=== PATIENT | female | born 1985 | race Two or more races ===

== ENCOUNTER 2025-03-23 12:50 | Emergency (ER) | payer OTHER, SELFPAY ==
[2025-03-23 13:06] VITALS: BP 136/82; PULSE 113; RESP 18; TEMP 37.2; BMI 36.0
--- NOTE | 2025-03-23 13:07 | XR_ITS ---
Examination: Complete OB ultrasound, less than 14 weeks, transabdominal Date and time of exam: March 23, 2025 1336 hours INDICATIONS: Onset heavy vaginal bleeding today Technique: Obstetrical ultrasound images less than 14 weeks performed via transabdominal imaging Findings: Uterus 15.0 cm endometrial stripe 2.9 cm heterogeneous and thickened, also blood clot in the cervix 8.7 x 6.9 x 6.3 cm Intrauterine gestation Right ovary 2.7 cm Left ovary 3.5 cm both arterial flow IMPRESSION: Positive for retained products of conception Consider short term follow-up transvaginal pelvic sonography
--- NOTE | 2025-03-23 13:51 | PD.EDVAGBL ---
ED OB Contraction Preg RMI/HPI General Chief complaint: Vaginal Bleeding Stated complaint: 13 WEEKS STARTED HAVING VAGBLEEDING TODAY Time Seen by Provider: 03/23/25 12:56 Arrival date/time: 03/23/25 12:50 This is a 39-year-old female that comes into the emergency room with complaints of vaginal bleeding. Patient states she was at [employer] and she felt a gush of blood. Patient states that prior to this she was having some spotting. Patient does not have an appointment with an HEAD RIGGER until April 07. Patient has not seen an HEAD RIGGER for this . Patient is a 3 para 2. Patient denies any past medical history. Patient denies abdominal pain, nausea, vomiting, and diarrhea. Related Data Previous Rx's ?Medication ?Instructions ?Recorded ipratropium bromide 21 mcg (0.03 2 spray intranasal BID #30 mL 07/29/18 %) nasal spray loratadine 10 mg tablet (Allergy 10 mg PO QDAY allergy symptoms #30 07/29/18 Relief (loratadine)) tabs docusate sodium 100 mg capsule 100 mg PO QDAY 30 days #30 caps 03/27/25 (Stool Softener) ferrous sulfate 325 mg (65 mg 325 mg PO QDAY 60 days #60 tabs 03/27/25 iron) tablet ibuprofen 800 mg tablet 800 mg PO Q8H PRN pain #30 tabs 03/27/25 Allergies Allergy/AdvReac Type Severity Reaction Status Date / Time No Known Allergies Allergy Verified 03/26/25 12:28 Review of Systems Review of Systems Systems Reviewed: All systems reviewed, normal except as documented Past Medical History Past Medical History Comments PMH COMMENT: denies ED Exam Narrative Physical exam: Breathing even and unlabored.VITAL SIGNS: Reviewed. GENERAL APPEARANCE: Alert and interactive, follows commands, no acute distress, HEAD AND FACE: Non-traumatic. ENT: PERRL, conjuctiva pink and clear, eyelid no trauma, Mucous membrane moist. NECK: Supple, nontender, no nuchal rigidity. CHEST: No tenderness, no crepitus, no paradoxical movement, no retractions. LUNGS: Clear, well ventilated, symmetric, no rales, no wheezing, no rhonchi, no stridor, good breath sounds bilaterally. HEART: Regular rate, regular rhythm, cap refill less than 2 seconds. ABDOMEN: Soft, nondistended, no guarding, nontender NEUROLOGICAL: Gross motor function intact sensory function intact, Appropriate for age. MUSCULOSKELETAL: low back nontender, full range of motion. EXTREMITIES: No redness no swelling no skin breakdown on bilateral foot and leg. Distal neurovascular status intact bilateral foot SKIN: Color pink, dry, no rash, no lacerations, no abrasions, no contusions. Course Quality Measures none Orders Category Date Time Status US OB <= 14 weeks fetus Stat Exams 03/23/25 13:07 Completed ABO/RH Type Stat Lab 03/23/25 13:42 Completed Beta HCG,Quantitative Stat Lab 03/23/25 13:42 Completed CBC Stat Lab 03/23/25 13:42 Completed Comprehensive Metabolic Panel Stat Lab 03/23/25 13:42 Completed Path Review Blood Smear Stat Lab 03/23/25 13:42 Completed Acetaminophen Tab [Tylenol ES Tab] Med 03/23/25 15:51 Discontinued 1,000 mg PO X1 ONE Ibuprofen Tab [Motrin Tab] Med 03/23/25 15:51 Discontinued 800 mg PO X1 ONE Vital Signs Vital signs: Vital Signs Temperature 98.9 F 03/23/25 13:06 Pulse Rate 113 H 03/23/25 13:06 Respiratory Rate 18 03/23/25 13:06 Blood Pressure 136/82 H 03/23/25 13:06 Vaginal Bleeding MDM Narrative MDM Narrative: Labs reviewed. Patient's hemoglobin is 8.4 hematocrit is 29.3 last baseline hemoglobin was 4 years ago. I let patient know that she needs to have this rechecked. BNP unremarkable for the most part her AST is slightly elevated at 52. Beta quant hCG is 446. us : IMPRESSION: Positive for retained products of conception Consider short term follow-up transvaginal pelvic sonography Spoke to patient at length. I gave her strict return to the emergency room instructions. I told her to call tomorrow morning to make an appointment with her HEAD RIGGER. I told her to come back to the emergency room if symptoms change or worsen. Lazaro dictation: Although this document has been carefully reviewed, there may still be some phonetic and other typographical errors. These errors are purely grammatical due to imperfections in the software program and should not be construed in any way to compromise the substance of the patient's medical care during this visit. Patient data External records reviewed:: [facility] previous records Clinical information provided by:: patient Social determinants that could affect healthcare access:: none Patient has the following chronic illnesses:: none How is presenting disease/condition affected by chronic disease/condition?: no chronic disease Evaluation data The following diagnostics were reviewed and interpreted by me:: lab results and radiology exam(s) Lab and/or radiology exams considered but not ordered:: none Interpretation Summary: see note Medications / Prescriptions Medications or Prescriptions considered but not ordered:: none Medication administrations:: Medication Administration History Discontinued Medications Acetaminophen (Acetaminophen 500 Mg Tablet) 1,000 mg PO X1 ONE Stop: 03/23/25 15:52 Last Admin: 03/23/25 16:13 Dose: 1,000 mg Documented By: DB Ibuprofen (Ibuprofen Tab 400 Mg Tablet) 800 mg PO X1 ONE Stop: 03/23/25 15:52 Last Admin: 03/23/25 16:13 Dose: 800 mg Documented By: SIMI none Consultations Consultation(s) initiated? (list below): No Diagnosis Vaginal Bleeding Differential Diagnosis: threatened , dysfunctional uterine bleeding, incomplete , ectopic without intrauterine and vaginal bleeding Most likely diagnosis given after review of the tests above:: incomplete Admission Indicated Admission indicated?: not indicated Admission Request Was there a request for admission?: No Disposition Plan Disposition Plan: Discharge Discharge Attestation Discharge Attestation: The patient and all family members were given an opportunity to ask questions and understood the discharge instructions. Discharge instructions specifically effects, indications for sooner follow up or return to the emergency department, and the expected course of current diagnosis. Patient condition: Stable Discharge Plan Plan Patient Disposition: HOME (Self Care) Patient condition on transfer: Stable Prescriptions/Referrals Prescriptions/Med Rec: No Action ipratropium bromide 0.03 % spray,non-aerosol 2 spray INTRANASAL BID Qty: 30 0RF Rx Instructions: administer into each nostril; wait 30 seconds between sprays loratadine [Allergy Relief (loratadine)] 10 mg tablet 10 mg PO QDAY Qty: 30 3RF ibuprofen 800 mg tablet 800 mg PO Q8H PRN (Reason: pain) Qty: 30 0RF docusate sodium [Stool Softener] 100 mg capsule 100 mg PO QDAY 30 Days Qty: 30 0RF ferrous sulfate 325 mg (65 mg iron) tablet 325 mg PO QDAY 60 Days Qty: 60 1RF Referrals: Ivan Eastman MD [Primary Care Provider] - In 1 week Problem List Clinical Impression: Incomplete miscarriage, Anemia Patient/Caregiver Discharge Instructions Discharge Activity: activity as tolerated Education Materials: Anemia, ED Miscarriage, Incomplete Additional Instructions: Follow up with primary provider in 1-2 days. Come back to ED if symptoms change or worsen Print Language: Ukrainian Stand Alone Forms: Odalis Award Info., Work/School Release, Patient Portal Info Letter PA/SUPERVISOR [employer] Supervising Physician PA/SUPERVISOR [employer] Supervising Physician: [email or web address]
[2025-03-23 14:25] LABS: Basophils # (Auto) 0.1 Thou/mm3 (0.0-0.2); Basophils % (Auto) 1 % (0-2.5); Eosinophils # (Auto) 0.1 Thou/mm3 (0.0-0.5); Eosinophils % (Auto) 2 % (0-10); Hematocrit 29.3 % (36.0-46.0); Immature Granulocytes Auto 0.01 Thou/mm3 (0.00-0.00); Lymphocytes # (Auto) 2.0 Thou/mm3 (1.0-4.8); Lymphocytes % (Auto) 30 % (10-50); Mean Corpuscular HGB Conc 28.7 g/dl (31.0-37.0); Mean Corpuscular Hemoglobin 18.5 pg (25.0-35.0); Mean Corpuscular Volume 65 fL (80-100); Monocytes # (Auto) 0.5 Thou/mm3 (0.0-0.8); Monocytes % (Auto) 7 % (0-12); Neutrophils # (Auto) 4.1 Thou/mm3 (1.8-7.7); Neutrophils % (Auto) 60 % (37-80); Nucleated Red Blood Cell # 0.00 Thou/mm3 (0.00-0.00); Nucleated Red Blood Cell % 0 /100 WBC (0); Platelet Count 262 Thou/mm3 (140-440); RDW Standard Deviation 54.1 fL (36.4-46.3); Red Blood Count 4.53 Miln/mm3 (4.00-5.20); White Blood Count 6.8 Thou/mm3 (3.6-11.0)
[2025-03-23 14:26] LABS: Hemoglobin 8.4 g/dL (12.0-16.0)
[2025-03-23 14:48] LABS: Path Review Blood Smear Sent to Pathologist
[2025-03-23 14:50] LABS: Alanine Aminotransferase 30 U/L (10-49); Albumin, Serum 3.9 gm/dL (3.5-5.0); Albumin/Globulin Ratio 1.3 (1.2-2.2); Alkaline Phosphatase 62 U/L (46-116); Anion Gap 13 (7-16); Aspartate Amino Transferase 52 U/L (0-34); BUN/Creatinine Ratio 11 Ratio (12-20); Beta HCG,Quantitative 446 mIU/mL (<5.0); Bilirubin,Total 0.5 mg/dL (0.3-1.2); Blood Urea Nitrogen 8 mg/dL (9-23); Calcium 9.0 mg/dL (8.3-10.6); Calcium (Corrected) 9.1 mg/dL (8.5-10.1); Carbon Dioxide 20.9 mMol/L (20.0-31.0); Chloride 106 mMol/L (98-107); Creatinine (Component) 0.7 mg/dL (0.6-1.3); Estimated Creatinine Clearance 123.2 mL/min (>60); Globulin 2.9 gm/dL (2.3-3.5); Glucose 104 mg/dL (74-106); Osmolality,Calculated 277 (275-295); Potassium 3.6 mMol/L (3.4-5.1); Sodium 140 mMol/L (136-145); Total Protein 6.8 gm/dL (5.7-8.2); eGFR > 60 See Note
[2025-03-23] MEDS: IBUPROFEN TAB 400 MG TABLET 800 MG PO (16:13)
[2025-03-23] MEDS: ACETAMINOPHEN 500 MG TABLET 1000 MG PO (16:13)
[2025-03-23 16:16] VITALS: BP 148/84; PULSE 103; RESP 20; TEMP 36.9; O2SAT 100
[2025-03-23 16:34] VITALS: BP 148/84; PULSE 103; RESP 20; TEMP 36.9; O2SAT 99
== END 2025-03-23 16:35 | disposition home or self-care (01) ==
PROVIDERS: Nurse Practitioner Primary Care; Emergency Provider Family Medicine; PCP Family Medicine
DX: O03.39 Incomplete spontaneous abortion with other complications (principal); D64.9 Anemia, unspecified
CPT/HCPCS: 36415; 76801; 80053; 84702; 85025; 86900; 86901; 87086; 99283; A9270